=== PATIENT | male | born 1985 | race Two or more races ===

== ENCOUNTER 2016-07-26 20:06 | Emergency (ER) | payer SELFPAY ==
[2016-07-26 20:19] VITALS: BP 129/70; PULSE 64; TEMP 98.2; BMI 20.7
[2016-07-26] MEDS ORDERED: BACITRACIN 30 GM TUBE TOPICAL OINTMENT TP STA (20:54)
--- NOTE | 2016-07-26 21:00 | PDOC ---
History of Present Illness - General Chief Complaint: Laceration Stated Complaint: LACERATION Time Seen by Provider: 07/26/16 20:48 History Source: Patient Exam Limitations: No Limitations - History of Present Illness Initial Comments: 07/26/16 20:55 30 yr male states he slipped and fell 2 nights ago and cut his right elbow. Pt has been applying crushed up antibioitc pills to the wounds. Pt is here for evaluation. tetanus is UTD. Past History - Past Medical History Allergies/Adverse Reactions: Allergies Allergy/AdvReac Type Severity Reaction Status Date / Time No Known Allergies Allergy Verified 07/26/16 20:15 Home Medications: Ambulatory Orders Cephalexin Monohydrate [Keflex -] 500 mg PO BID #10 capsule 07/26/16 Other medical history: denies - Psycho/Social/Smoking Cessation Hx Suicidal Ideation: No Smoking History: Never smoked Hx Alcohol Use: No Drug/Substance Use Hx: No *Physical Exam - Vital Signs Last Vital Signs Temp Pulse Resp BP Pulse Ox 98.2 F 64 18 129/70 100 07/26/16 20:15 07/26/16 20:15 07/26/16 20:15 07/26/16 20:15 07/26/16 20:15 - Physical Exam General Appearance: Yes: Nourished, Appropriately Dressed HEENT: positive: EOMI, BRIGITTE Respiratory/Chest: positive: Lungs Clear, Normal Breath Sounds Cardiovascular: positive: Regular Rhythm, Regular Rate Integumentary: positive: Normal Color, Dry, Warm, Other (right elbow with 2cm flap laceration over the olecrenon. no drainage or discharge into subcutaneous tissue. right forearm with 1cm superficial avulsion of the skin no redness no drainage. ) Neurologic: positive: Fully Oriented, Alert, Normal Mood/Affect, Normal Response , Motor Strength 5/5 Procedures - Laceration/Wound Repair Right Elbow Wound Length: to 2.5 cm Wound Explored: contaminated (crushed up amoxicillin ) Wound's Depth, Shape: flap, contused tissue Sterile Dressing Applied: Yes (cleaned with sterile water and peroxide, bacitracin placed with bandage ) *DC/Admit/Observation/Transfer Diagnosis at time of Disposition: Laceration - Discharge Dispostion Disposition: HOME Condition at time of disposition: Stable - Prescriptions Prescriptions: Cephalexin Monohydrate [Keflex -] 500 mg PO BID #10 capsule - Referrals Referrals: Tim Harris MD [Staff Physician] - - Patient Instructions Additional Instructions: keep the wounds clean and dry wash daily with antibacterial soap and water apply a thin layer of bacitracin or neosporin ointment (over the counter) and cover with bandage.keep covered while at work around food you can let the wound air out when not at work follow with the plastic surgeon for any signs of infection or worsening symptoms take keflex as directed for 5 days to prevent infection
== END 2016-07-26 21:15 | disposition home or self-care (01) ==
LOC: JERFT 20:06
DX: S51.021A Laceration with foreign body of right elbow, initial encounter (principal); W01.110A Fall on same level from slipping, tripping and stumbling with subsequent striking against sharp glass, initial encounter; Y93.89 Activity, other specified; Y92.89 Other specified places as the place of occurrence of the external cause
CPT/HCPCS: 73070-TC-RT; 99281-25